=== PATIENT | female | born 1995 | race Caucasian/White ===

== ENCOUNTER 2016-07-29 18:14 | Outpatient (CLI) | payer OTHER ==
[~2016-07-29] VITALS: Ht 152.4 cm; Wt 84.1 kg
[2016-07-29] MEDS ORDERED: FERR325C PO (18:20)
[2016-07-29] MEDS ORDERED: PRENAT PO (18:20)
[2016-07-29 18:21] VITALS: Ht 152.4 cm; Wt 84.1 kg
[2016-07-29 18:34] VITALS: BP 127/63; PULSE 89; RESP 18
--- NOTE | 2016-07-29 19:37 | RADRPT ---
PROCEDURE: Limited obstetric ultrasound CLINICAL INDICATION: distress TECHNIQUE: Multiple transverse and longitudinal grayscale images of the pelvis were obtained bunch sabdominally and endovaginally.. COMPARISON: same day FINDINGS: The cervix is closed and measures 5.5 cm in length. RPTAT: AA IMPRESSION: Cervix length measures 5.5 cm. Physician Hope Date Time Electronically viewed and signed by Matthew Limon Physician on 07/29/2016 19:37 RA/
--- NOTE | 2016-07-29 19:38 | RADRPT ---
PROCEDURE: US OB biophysical profile. CLINICAL INDICATION: evaluation TECHNIQUE: Multiple sonographic images of the pelvis were obtained. The images were reviewed on a PACS workstation. COMPARISON: No prior studies are available for comparison. FINDINGS: There is a single viable intrauterine gestation. Cardiac activity is present with 144 beats per min [place]. There is a vertex presentation. The placenta is posterior. There is no evidence of placental abruption. There is a normal amount of amniotic fluid with an DONNA = 21.7 cm. Biophysical profile: movement 2/2 tone 2/2. breathing 2/2 DONNA 2/2 Total 12/06 RPTAT: AA . IMPRESSION: Normal biophysical profile. DONNA of 21.7 cm. Physician Hope Date Time Electronically viewed and signed by Physician Hope on 07/29/2016 19:38 /
--- NOTE | 2016-07-29 20:43 | PN ---
Date/Time of Note Date/Time of Note DATE: 07/29/16 TIME: 20:27 OB Subjective Subjective Subjective 21 yo P2 @ 31.4 wks, presented from clinic w polyhydraminos no complaints- good FM, no VB, no LOF, some irreg ctx OB Objective Objective Objective VS: 127/63, 89, 98 Abdomen- gravid, n/t SVE- deferred FHT- 130's; Cat I [place]- irreg ctx Abdomen: WNL Extremities: Normal Reflexes: Normal Membranes: Intact Accelerations: Accelerations Present Decelerations: No Decelerations Varibility: Moderate Contractions on Admission: 6-10 Minutes Apart Intensity: Mild OB Assessment/Plan Other Assessment: 21 yo P2 @ 31.4 wks w polyhydraminos - sono shows nml DONNA - cervical length 5.5cm - reassuring status Other plan: d/c home f/u in clinic SALEEM INIGUEZ MD Jul 29, 2016 20:43
--- NOTE | 2016-07-29 21:48 | TRIAGE ---
OB Triage Datetime Report Generated by CPN: 07/29/2016 21:47 Datetime: 07/29/2016 20:30 Labor Evaluation Frequency: IRREGULAR Monitor Mode: External Duration (sec)2399: 40-50 Quality: Mild Resting Tone [place]: Relaxed Heart Rate FHR Baseline Rate: 140 Monitor Mode: External US Variability: Moderate 6-25 bpm Accelerations: 15X15 Decelerations: None Category: Category I Datetime: 07/29/2016 20:23 Stage of : OB Triage Datetime: 07/29/2016 19:49 Stage of : OB Triage Datetime: 07/29/2016 19:30 Labor Evaluation Frequency: 2-6 Monitor Mode: External Duration (sec)2399: 40-70 Quality: Mild Resting Tone [place]: Relaxed Heart Rate FHR Baseline Rate: 130 Monitor Mode: External US Variability: Moderate 6-25 bpm Accelerations: 15X15 Decelerations: None Category: Category I Pain Assessment Pain Scale: 5 Pain Presence: Intermittent Pain Type: Cramping Pain Location: Abdomen Pain Relief Measures: Comfort Measures Datetime: 07/29/2016 18:38 Assessment Type: Admission Assessment Maternal Assessment Level of Consciousness: Fully Conscious DTR's/Clonus: DTRs 2+; No Clonus Headache: Denies Blurred Vision: No Respiratory Effort: Unlabored; Regular Rhythm; Equal Expansion Breath Sounds, Left: Clear and Equal Breath Sounds, Right: Clear and Equal Nausea/Vomiting: Denies RUQ Epigastric Pain: Denies Lower Extremities Edema: None Degree: None Upper Extremities Edema: None Degree: None Facial Edema: None Fall Risk Assessment History of Falling: (0) No Secondary Diagnosis: (0) No Ambulatory Aid: (0) Bedrest/Nurse Assist IV Therapy: (0) No Gait: (0) Normal/Bedrest/Immobile Mental Status: (0) Oriented to Own Ability Fall Score: 0 Fall Risk Score Definition: No Risk: No action required Labor Evaluation Frequency: OCCAS Monitor Mode: External Duration (sec)2399: 40-70 Quality: Mild Pattern: Normal: <= 5 Contractions in 10 Minutes Resting Tone [place]: Relaxed Heart Rate FHR Baseline Rate: 135 Monitor Mode: External US Variability: Moderate 6-25 bpm Accelerations: 15X15 Decelerations: None Category: Category I Datetime: 07/29/2016 18:36 Time of Arrival: 07/29/2016 18:14 EGA: 31.4 Arrived By: Wheelchair Arrived From: Emergency Dept Chief Complaint: POLYHYDRAMNIO Movement: Present Contractions: Irregular Rupture of Membranes: Denies Vaginal Bleeding: None Vaginal Discharge: Denies Recent Sexual Intercouse: Denies Abdominal Trauma: Not Applicable Patient Complaints: Other Initial Plan: NST, BPP WITH DONNA, CL
== END 2016-07-29 20:45 | disposition home or self-care (01) ==
LOC: L-D 18:14 → OBT 18:14
PROVIDERS: ATTEND Obstetrics & Gynecology
DX: O40.3XX0 Polyhydramnios, third trimester, not applicable or unspecified (principal); Z3A.31 31 weeks gestation of pregnancy
CPT/HCPCS: 76817; 76818; Z7500; G0463

== ENCOUNTER 2016-08-05 16:36 | Outpatient (CLI) | payer OTHER ==
[~2016-08-05] VITALS: Ht 152.4 cm; Wt 84.4 kg
[~2016-08-05 16:36] MED LIST: FERR325C PO; PRENAT PO
[2016-08-05 16:48] VITALS: BP 106/65; PULSE 97; RESP 18
[2016-08-05 17:38] LABS: ADD SCAN DIFF NO
[2016-08-05 17:44] LABS: BASOPHILS % 0.3 % (0.0-2.0); EOSINOPHILS # 0.1 10^3/ul (0.0-0.5); EOSINOPHILS % 0.4 % (0.0-7.0); HEMATOCRIT 32.3 % (37.0-47.0); HEMOGLOBIN 10.5 g/dl (12.0-16.0); LYMPHOCYTES # 1.9 10^3/ul (0.8-2.9); MEAN CORPUSCULAR HGB CONC 32.5 g/dl (32.0-37.0); MEAN PLATELET VOLUME 11.9 fl (7.4-10.4); MONOCYTE # 0.8 10^3/ul (0.3-0.9); MONOCYTES % 5.2 % (0.0-11.0); NEUTROPHIL # 12.3 10^3/ul (1.6-7.5); NEUTROPHILS % 80.1 % (39.0-77.0); PLATELET COUNT 256 10^3/UL (140-415); RED BLOOD COUNT 3.89 10^6/ul (4.20-5.40); RED CELL DISTRIBUTION WIDTH 13.1 % (11.5-14.5); WHITE BLOOD COUNT 15.4 10^3/ul (4.8-10.8)
[2016-08-05 17:46] LABS: ADD UMIC YES; URINE BILIRUBIN (Dip) NEGATIVE (NEGATIVE); URINE BLOOD (Dip) 1+ (NEGATIVE); URINE COLOR LT. YELLOW (YELLOW); URINE GLUCOSE (Dip) NEGATIVE (NEGATIVE); URINE KETONES (Dip) NEGATIVE (NEGATIVE); URINE LEUKOCYTE ESTERASE (Dip) TRACE (NEGATIVE); URINE NITRITE (Dip) NEGATIVE (NEGATIVE); URINE TOTAL PROTEIN (Dip) TRACE (NEGATIVE); URINE UROBILINOGEN (Dip) 0.2 E.U./dL (0.1-1.0)
[2016-08-05 17:50] LABS: INR 1.01; PROTIME 13.3 Sec (12.2-14.2)
[2016-08-05 17:51] LABS: PARTIAL THROMBOPLASTIN TIME 24.1 Sec (25.0-35.0)
[2016-08-05 17:56] LABS: ALBUMIN 3.7 g/dl (3.3-4.9); ALBUMIN/GLOBULIN RATIO 0.97; BILIRUBIN,INDIRECT 0.3 mg/dl (0-1.1); BILIRUBIN,TOTAL 0.3 mg/dl (0.2-1.3); CALCIUM 8.1 mg/dl (8.4-10.2); CREATININE 0.49 mg/dl (0.44-1.00); POTASSIUM 3.9 mmol/L (3.5-5.1); TOTAL PROTEIN 7.5 g/dl (6.1-8.1); URIC ACID 3.9 mg/dl (3.1-7.9)
--- NOTE | 2016-08-05 17:56 | RADRPT ---
PROCEDURE: US OB biophysical profile. CLINICAL INDICATION: decreased movements, hypertension TECHNIQUE: Multiple sonographic images of the pelvis were obtained. The images were reviewed on a PACS workstation. COMPARISON: 07/29/16 FINDINGS: There is a single viable intrauterine gestation. Cardiac activity is present with 128 beats per min [place]. There is a vertex presentation. The placenta is posterior. There is no evidence of placental abruption. There is a normal amount of amniotic fluid with an DONNA = 19.6 cm. Biophysical profile: movement 2/2 tone 2/2. breathing 2/2 DONNA 2/2 Total 12/06 RPTAT: AA . IMPRESSION: Normal biophysical profile. . .Elan Roper MD, MD Date Time Electronically viewed and signed by .Elan Roper MD, MD on 08/05/2016 17:56 .S/
[2016-08-05 18:04] LABS: BACTERIA,URINE FEW
--- NOTE | 2016-08-05 18:09 | RADRPT ---
PROCEDURE: US OB. CLINICAL INDICATION: Size and dates , hypertension TECHNIQUE: Multiple sonographic images of the pelvis and gravid uterus were obtained. The images were reviewed on a PACS workstation. COMPARISON: No prior studies are available for comparison. FINDINGS: There is a single viable intrauterine gestation. Cardiac activity is present with 126 beats per min [place]. There is a vertex presentation. The placenta is posterior. There is no evidence for an abruption or placenta previa. There is a normal amount of amniotic fluid with an DONNA = 19.6 cm. Measurements were made in order to determine age. The results are as follows: BPD =8.5 cm HC =29.8 cm AC =27.1 cm FL =6.3 cm Estimated gestational age of approximately 32 weeks and 5 days based on ultrasound measurements. Clinical age: 32 weeks and 4 days. The estimated date of delivery is 09/25/16, based on ultrasound measurements. The EFW = 1886 g, 24%, based on LMP age. RPTAT: AA IMPRESSION: Single viable intrauterine gestation of approximately 32 weeks and 5 days based on ultrasound measu rements. .Elan Roper MD, Date Time Electronically viewed and signed by .Elan Roper MD, on 08/05/2016 18:08 .S/
--- NOTE | 2016-08-05 19:38 | TRIAGE ---
OB Triage Datetime Report Generated by CPN: 08/05/2016 19:37 Datetime: 08/05/2016 19:15 Stage of : OB Triage Datetime: 08/05/2016 18:00 Labor Evaluation Frequency: X3 Monitor Mode: External Duration (sec)2399: 50-60 Quality: Mild Pattern: Normal: <= 5 Contractions in 10 Minutes Resting Tone [place]: Relaxed Heart Rate FHR Baseline Rate: 135 Monitor Mode: External US FHR Baseline Changes: No Baseline Change Variability: Moderate 6-25 bpm Accelerations: 15X15 Decelerations: None Category: Category I Pain Assessment Pain Scale: 6 Pain Presence: Intermittent Pain Type: Cramping; Ache Pain Location: Abdomen; Head Pain Relief Measures: Comfort Measures Datetime: 08/05/2016 17:00 Labor Evaluation Frequency: X1+IRRITABILITY Monitor Mode: External Duration (sec)2399: 20-50 Quality: Mild Pattern: Normal: <= 5 Contractions in 10 Minutes Resting Tone [place]: Relaxed Heart Rate FHR Baseline Rate: 135 Monitor Mode: External US FHR Baseline Changes: No Baseline Change Variability: Moderate 6-25 bpm Accelerations: 15X15 Decelerations: None Category: Category I Pain Assessment Pain Scale: 7 Pain Presence: Intermittent Pain Type: Cramping; Ache Pain Location: Abdomen; Head Pain Relief Measures: Comfort Measures Datetime: 08/05/2016 16:50 Assessment Type: Triage Maternal Assessment Level of Consciousness: Fully Conscious DTR's/Clonus: DTRs 2+; No Clonus Headache: Generalized Blurred Vision: No Respiratory Effort: Unlabored; Regular Rhythm Breath Sounds, Left: Clear and Equal Breath Sounds, Right: Clear and Equal Nausea/Vomiting: Denies RUQ Epigastric Pain: Denies Lower Extremities Edema: Bilateral Lower Extremities Degree: 1+ Upper Extremities Edema: None Degree: None Facial Edema: None Fall Risk Assessment History of Falling: (0) No Secondary Diagnosis: (0) No Ambulatory Aid: (0) Bedrest/Nurse Assist IV Therapy: (0) No Gait: (0) Normal/Bedrest/Immobile Mental Status: (0) Oriented to Own Ability Fall Score: 0 Fall Risk Score Definition: No Risk: No action required Datetime: 08/05/2016 16:49 Time of Arrival: 08/05/2016 16:35 EGA: 32.4 Arrived By: Ambulatory Arrived From: Other Unit in Hospital Chief Complaint: PT PRESENTS TO TRIAGE FROM T FOR COMPLAINTS OF HEADACHE AND ABDOMINAL PAIN SINC E YESTERDAY Movement: Present Contractions: Denies/Absent Rupture of Membranes: Denies Vaginal Bleeding: None Vaginal Discharge: Denies Recent Sexual Intercouse: Denies Abdominal Trauma: Not Applicable Patient Complaints: Headache; Epigastric Pain Time Provider Notified: 08/05/2016 16:37 Provider Notified: OPHELIA Initial Plan: EFM/PIH WORKUP/BPP/EFW Datetime: 08/05/2016 16:48 Pain Assessment Pain Scale: 7 Pain Presence: Constant Pain Type: Ache Pain Location: Abdomen; Head Pain Relief Measures: Comfort Measures Datetime: 07/29/2016 18:38 Fall Score: 0 Fall Risk Score Definition: No Risk: No action required Datetime: 07/29/2016 18:36 EGA: 31.4
== END 2016-08-05 19:36 | disposition home or self-care (01) ==
LOC: OBT 16:36 → L-D 16:37 → OBT 19:36
PROVIDERS: ATTEND Obstetrics & Gynecology
DX: O26.893 Other specified pregnancy related conditions, third trimester (principal); Z3A.32 32 weeks gestation of pregnancy
CPT/HCPCS: 36415; 76815; 76818; 80053; 81001; 84560; 85025; 85610; 85730; Z7500; Z7610; 81003; G0463

== ENCOUNTER 2016-08-13 16:02 | Outpatient (CLI) | payer OTHER ==
[~2016-08-13] VITALS: Ht 152.4 cm; Wt 85.6 kg
--- NOTE | 2016-08-13 16:04 | NSTRPT ---
NST Information Datetime Report Generated by CPN: 08/13/2016 16:03 Datetime: 08/05/2016 14:35 NST Information EGA: 32.4 Test Number: 1 Time on Monitor: 08/05/2016 15:18 Time off Monitor: 08/05/2016 15:44 NST Duration (Min): 26 Reason for NST: Polyhydramnios Test and Monitor Explained: Monitor Explained; Test Explained; Verbalized Understanding Pulse: 113 Resp: 18 SBP: 99 DBP: 58 Test Evaluation NST Interventions: None Patient States Movement: Present Contraction Frequency: NONE FHR Baseline : 135 Variability: Moderate 6-25bpm Accelerations: 15X15 Decelerations: None FHR Category: Category I NST Results: Reactive Comments: To Perinatology Pt to perinatology, DONNA 24.0cm, cephalic EFW 2086gms (50%), AC 69% Pt c/o headache 7/10 pain level and left upper quadrant pain 6/10, hx of preeclampsia with prior delivery. Dr. Stinson spoke with patient and recommends pt go to OB Triage for R/O PIH. Dr. Melvin shelley led and informed of Dr. Stinson's recommendation. Dr. Melvin agrees with plan. Plan of care discussed with patient. Pt verbalizes understanding. 1605-Pt to OB triage now. Follow-up NST appointment given, pt verbalizes understanding and denie s questions. Electronically Signed By E-Signature: with User ID: [id number]
[2016-08-13 16:13] VITALS: Ht 152.4 cm; Wt 85.6 kg
--- NOTE | 2016-08-13 16:58 | RADRPT ---
PROCEDURE: US OB biophysical profile. CLINICAL INDICATION: decreased movements TECHNIQUE: Multiple sonographic images of the pelvis were obtained. The images were reviewed on a PACS workstation. COMPARISON: No prior studies are available for comparison. FINDINGS: There is a single viable intrauterine gestation. Cardiac activity is present with 135 beats per min [place]. There is a transverse maternal right presentation. The placenta is posterior. There is no evidence of placental abruption. There is an increased amount of amniotic fluid with an DONNA = 24.5 cm. Biophysical profile: movement 2/2 tone 2/2. breathing 2/2 DONNA 2/2 Total 12/06 RPTAT: AA . IMPRESSION: Normal biophysical profile. Polyhydramnios. . .Elan Roper MD, Date Time Electronically viewed and signed by .Elan Roper MD, MD on 08/13/2016 16:58 .S/
[2016-08-13] MEDS ORDERED: LACTATED RINGER'S 1,000 ML IV ONE (17:00)
[2016-08-13] MEDS ORDERED: PROCHLORPERAZINE 10 MG INJ IV ONE (17:00)
[2016-08-13 17:45] LABS: ADD UMIC YES; URINE BILIRUBIN (Dip) NEGATIVE (NEGATIVE); URINE BLOOD (Dip) NEGATIVE (NEGATIVE); URINE COLOR YELLOW (YELLOW); URINE GLUCOSE (Dip) NEGATIVE (NEGATIVE); URINE KETONES (Dip) NEGATIVE (NEGATIVE); URINE LEUKOCYTE ESTERASE (Dip) 2+ (NEGATIVE); URINE NITRITE (Dip) NEGATIVE (NEGATIVE); URINE TOTAL PROTEIN (Dip) NEGATIVE (NEGATIVE); URINE UROBILINOGEN (Dip) 0.2 E.U./dL (0.1-1.0)
[2016-08-13 18:19] LABS: BACTERIA,URINE MODERATE; SQUAMOUS EPITHELIAL CELL,UR MANY; URINE RBCS NONE SEEN /HPF (0)
--- NOTE | 2016-08-13 18:19 | RADRPT ---
PROCEDURE: Limited obstetric ultrasound CLINICAL INDICATION: Pain TECHNIQUE: Multiple transverse and longitudinal grayscale images of the pelvis were obtained tra nsvaginally.. COMPARISON: same day FINDINGS: The cervix is closed with a length of 5.2 cm. RPTAT: AA IMPRESSION: Cervix length measures 5.2 cm. .Elan Roper MD, MD Date Time Electronically viewed and signed by .Elan Roper MD, on 08/13/2016 18:19 .S/
--- NOTE | 2016-08-13 18:49 | HP ---
Date/Time of Note Date/Time of Note DATE: 08/13/16 TIME: 18:48 OB - History Hx of Present Free Text/Dictation Pt is a 21yo at 33+5 presenting from clinic for evaluation of CLARK, nausea and decreased FM this AM. Pt states her headache has been intermittent x2 weeks. States she took Tylenol the last time she was in triage however it did not improve the pain much. Also c/o nausea although able to eat full breakfast this AM and fruit for lunch without vomiting. Reports normal FM, denies LOF or VB although does report feeling some UCs. PROCEDURE: US OB biophysical profile. CLINICAL INDICATION: decreased movements TECHNIQUE: Multiple sonographic images of the pelvis were obtained. The images were reviewed on a PACS workstation. COMPARISON: No prior studies are available for comparison. FINDINGS: There is a single viable intrauterine gestation. Cardiac activity is present with 135 beats per minute. There is a transverse maternal right presentation. The placenta is posterior. There is no evidence of placental abruption. There is an increased amount of amniotic fluid with an DONNA = 24.5 cm. Biophysical profile: movement 2/2 tone 2/2. breathing 2/2 DONNA 2/2 Total 12/06 RPTAT: AA . IMPRESSION: Normal biophysical profile. Polyhydramnios. PROCEDURE: Limited obstetric ultrasound CLINICAL INDICATION: Pain TECHNIQUE: Multiple transverse and longitudinal grayscale images of the pelvis were obtained transvaginally.. COMPARISON: same day FINDINGS: The cervix is closed with a length of 5.2 cm. RPTAT: AA IMPRESSION: Cervix length measures 5.2 cm. Estimated Due Date: September 26, 2016 : 3 Para: 2 Care: Good Care Obstetrical Complications: None (during this ), Pre-eclampsia (in prior ) OB Admission Exam Vital Signs Vital Signs T 96.0 BP 104/61, 113/69 P 89, 83 R 18 Physical Exam HEENT: WNL Heart: Rhythm Normal Lungs: Clear Abdomen: WNL (mild TTP along spine) Extremities: Normal Heart Rate: 150's Accelerations: Accelerations Present Decelerations: Variable Decelerations (several nonrepetitive variable with kevin to 120s-130s) Varibility: Moderate Contractions on Admission: 6-10 Minutes Apart (q7 min initially, now q9 s/p IVF bolus) Intensity: Mild OB Assessment/Plan Other Assessment: Headache and Nausea, resolved s/p IV Compazine Contractions, without evidence of PTL Polyhydramnios Category 2 FHT- Variable decels Other plan: Pt appropriate for d/c home given symptomatically feels well now. Likely UCs 2/ 2 polyhydramnios given long CL not indicative of labor thus collected FFN not sent. Given Category 2 FHT, recommended prolonged monitoring overnight. Pt declined in favor of going home. Pt was asked to sign an AMA form prior to leaving the hospital and after reviewing risks of leaving prior to confirming wellbeing. Risks discussed include but are not limited to , distress or compromise and neurological injury in fetus. Pt was able to verbalize risks discussed. Pt was counseled and form was signed. Questions were answered to the patient's satisfaction. She reports her next OB appt is next week with Dr. Melvin and anticipates returning to OB Triage in 2d for NST/DONNA. Return precautions reviewed in detail, including PTL, PPROM and FKC. Would recommend continued surveillance in the setting of polyhydramnios Questions answered to patient's satisfaction MAURICIO ALCANTAR MD Aug 13, 2016 18:49
== END 2016-08-13 19:25 | disposition home or self-care (01) ==
LOC: OBT 16:02 → L-D 16:02 → OBT 19:25
PROVIDERS: ATTEND Obstetrics & Gynecology
DX: O36.8130 Decreased fetal movements, third trimester, not applicable or unspecified (principal); O26.893 Other specified pregnancy related conditions, third trimester; R10.9 Unspecified abdominal pain; Z3A.33 33 weeks gestation of pregnancy
CPT/HCPCS: 36415; 76817; 76818; 81001; J0780; J7120; Z7500; 81003; G0463

== ENCOUNTER 2016-08-23 11:19 | Outpatient (CLI) | payer OTHER ==
[~2016-08-23] VITALS: Ht 152.4 cm; Wt 87.5 kg
[2016-08-23 11:48] VITALS: BP 112/59; PULSE 96; RESP 20
[2016-08-23] MEDS ORDERED: ACETAMINOPHEN 325 MG TAB PO PRN (12:30)
--- NOTE | 2016-08-23 13:25 | RADRPT ---
PROCEDURE: OB ultrasound for biophysical profile CLINICAL INDICATION: induced hypertension. TECHNIQUE: Multiple sonographic images of the pelvis were obtained. Transabdominal view of the gr avid uterus are available for review. The images were reviewed on a PACS workstation. COMPARISON: OB ultrasound 08/13/2016 FINDINGS: breathing movement = 2/2 tone = 2/2 motion = 2/2 DONNA = 2/2 DONNA = 24.6 cm Single live intrauterine with cardiac activity. heart rate equals 134 beats p er minute. Presentation is cephalic. The placenta is posterior. IMPRESSION: 1. Single viable intrauterine gestation. 2. Biophysical profile = 8/8. 3. DONNA = 24.6 cm, consistent with polyhydramnios. Follow-up is recommended. RPTAT: KK .Miah Mcneil MD, Date Time Electronically viewed and signed by .Miah Mcneil MD, MD on 08/23/2016 13:25 .B/
[2016-08-23 13:31] LABS: ADD SCAN DIFF NO
[2016-08-23 13:33] LABS: BASOPHILS % 0.3 % (0.0-2.0); EOSINOPHILS % 0.3 % (0.0-7.0); HEMATOCRIT 31.2 % (37.0-47.0); HEMOGLOBIN 9.9 g/dl (12.0-16.0); LYMPHOCYTES # 1.8 10^3/ul (0.8-2.9); LYMPHOCYTES % 14.7 % (15.0-51.0); MEAN CORPUSCULAR HEMOGLOBIN 25.7 pg (29.0-33.0); MEAN CORPUSCULAR HGB CONC 31.7 g/dl (32.0-37.0); MEAN PLATELET VOLUME 11.7 fl (7.4-10.4); MONOCYTE # 0.6 10^3/ul (0.3-0.9); MONOCYTES % 4.8 % (0.0-11.0); NEUTROPHIL # 9.5 10^3/ul (1.6-7.5); NEUTROPHILS % 78.3 % (39.0-77.0); PLATELET COUNT 250 10^3/UL (140-415); RED BLOOD COUNT 3.85 10^6/ul (4.20-5.40); RED CELL DISTRIBUTION WIDTH 13.9 % (11.5-14.5); WHITE BLOOD COUNT 12.2 10^3/ul (4.8-10.8)
[2016-08-23 13:40] LABS: ADD UMIC YES; UR BILIRUBIN (Dip) NEGATIVE (NEGATIVE); UR BLOOD (Dip) TRACE (NEGATIVE); UR CLARITY CLEAR (CLEAR); UR COLOR LT. YELLOW (YELLOW); UR GLUCOSE (Dip) NEGATIVE (NEGATIVE); UR KETONES (Dip) NEGATIVE (NEGATIVE); UR LEUKOCYTE ESTERASE (Dip) TRACE (NEGATIVE); UR NITRITE (Dip) NEGATIVE (NEGATIVE); UR TOTAL PROTEIN (Dip) NEGATIVE (NEGATIVE); UR UROBILINOGEN (Dip) 0.2 E.U./dL (0.1-1.0)
[2016-08-23 13:43] LABS: INR 0.97; PROTIME 12.9 Sec (12.2-14.2)
[2016-08-23 13:44] LABS: PARTIAL THROMBOPLASTIN TIME 25.8 Sec (25.0-35.0)
[2016-08-23 13:47] LABS: ALBUMIN 3.5 g/dl (3.3-4.9); ALBUMIN/GLOBULIN RATIO 0.97; BILIRUBIN,INDIRECT 0.1 mg/dl (0-1.1); BILIRUBIN,TOTAL 0.1 mg/dl (0.2-1.3); CALCIUM 8.5 mg/dl (8.4-10.2); CREATININE 0.42 mg/dl (0.44-1.00); TOTAL PROTEIN 7.1 g/dl (6.1-8.1); URIC ACID 3.5 mg/dl (3.1-7.9)
[2016-08-23 14:02] LABS: UR BACTERIA FEW; URINE RBCS 0-2 /HPF (0)
[2016-08-23] MEDS ORDERED: PRENAT PO ×3 (14:20→14:28)
--- NOTE | 2016-08-23 14:36 | TRIAGE ---
OB Triage Datetime Report Generated by CPN: 08/23/2016 14:35 Datetime: 08/23/2016 14:20 Stage of : Antepartum Datetime: 08/23/2016 13:50 Stage of : OB Triage Datetime: 08/23/2016 13:40 Stage of : OB Triage Datetime: 08/23/2016 12:30 Stage of : OB Triage Datetime: 08/23/2016 12:00 Stage of : OB Triage Labor Evaluation Frequency: NONE Monitor Mode: External Resting Tone [place]: Relaxed Heart Rate FHR Baseline Rate: 140 FHR Baseline Changes: No Baseline Change Variability: Moderate 6-25 bpm Accelerations: 15X15 Decelerations: None Category: Category I Pain Assessment Pain Scale: 8 Pain Presence: Constant Pain Type: Pressure Pain Location: Head Pain Goal: 3 Pain Relief Measures: Comfort Measures Datetime: 08/23/2016 11:59 Assessment Type: Triage Maternal Assessment Level of Consciousness: Fully Conscious DTR's/Clonus: DTRs 2+; No Clonus Headache: Frontal Blurred Vision: No Respiratory Effort: Unlabored; Regular Rhythm; Equal Expansion Breath Sounds, Left: Clear and Equal Breath Sounds, Right: Clear and Equal Nausea/Vomiting: Denies RUQ Epigastric Pain: Denies Lower Extremities Edema: None Degree: None Upper Extremities Edema: None Degree: None Facial Edema: None Fall Risk Assessment History of Falling: (0) No Secondary Diagnosis: (0) No Ambulatory Aid: (0) Bedrest/Nurse Assist IV Therapy: (0) No Gait: (0) Normal/Bedrest/Immobile Mental Status: (0) Oriented to Own Ability Fall Score: 0 Fall Risk Score Definition: No Risk: No action required Datetime: 08/13/2016 19:06 Comments: REPORT GIVEN TO BEVERLY RN Datetime: 08/13/2016 18:43 Labor Evaluation Frequency: 7-9 Monitor Mode: External Duration (sec)2399: 65-100 Quality: Mild Pattern: Normal: <= 5 Contractions in 10 Minutes Resting Tone [place]: Relaxed Heart Rate FHR Baseline Rate: 160 Monitor Mode: External US FHR Baseline Changes: No Baseline Change Variability: Moderate 6-25 bpm Accelerations: 15X15 Decelerations: Variable Category: Category I Pain Assessment Pain Scale: 2 Pain Presence: Intermittent Pain Type: Ache Pain Location: Back; Head Pain Relief Measures: Comfort Measures Datetime: 08/13/2016 18:29 Stage of : OB Triage Datetime: 08/13/2016 17:52 Labor Evaluation Frequency: 1-7 Monitor Mode: External Duration (sec)2399: 50-100 Quality: Mild Pattern: Normal: <= 5 Contractions in 10 Minutes Resting Tone [place]: Relaxed Heart Rate FHR Baseline Rate: 150 Monitor Mode: External US FHR Baseline Changes: No Baseline Change Variability: Moderate 6-25 bpm Accelerations: Prolonged Decelerations: None Category: Category I Pain Presence: None/Denies Pain Assessment Comments: Pt informs RN she has no more headache. Datetime: 08/13/2016 17:22 Pain Assessment Pain Scale: 8 Pain Presence: Constant Pain Type: Ache Pain Location: Head Pain Goal: 2 Pain Relief Measures: Comfort Measures Pain Assessment Comments: Pt c/o of constant headache Datetime: 08/13/2016 16:52 Labor Evaluation Frequency: 2-8 Monitor Mode: External Duration (sec)2399: 40-100 Quality: Mild Pattern: Normal: <= 5 Contractions in 10 Minutes Resting Tone [place]: Relaxed Heart Rate FHR Baseline Rate: 150 Monitor Mode: External US FHR Baseline Changes: No Baseline Change Variability: Moderate 6-25 bpm Accelerations: 15X15 Decelerations: None Category: Category I Pain Assessment Pain Scale: 3 Pain Presence: Intermittent Pain Type: Ache Pain Location: Back Pain Goal: 0 Pain Relief Measures: Comfort Measures Datetime: 08/13/2016 16:21 Assessment Type: Triage Maternal Assessment Level of Consciousness: Fully Conscious DTR's/Clonus: DTRs 2+; No Clonus Headache: Denies Blurred Vision: No Respiratory Effort: Unlabored; Regular Rhythm; Equal Expansion Breath Sounds, Left: Clear and Equal Breath Sounds, Right: Clear and Equal Nausea/Vomiting: Denies RUQ Epigastric Pain: Denies Lower Extremities Edema: Bilateral Lower Extremities Degree: Trace Upper Extremities Edema: Bilateral Upper Extremities Degree: Trace Facial Edema: None Fall Risk Assessment History of Falling: (0) No Secondary Diagnosis: (0) No Ambulatory Aid: (0) Bedrest/Nurse Assist IV Therapy: (0) No Gait: (0) Normal/Bedrest/Immobile Mental Status: (0) Oriented to Own Ability Fall Score: 0 Fall Risk Score Definition: No Risk: No action required Datetime: 08/13/2016 16:14 Time of Arrival: 08/23/2016 11:21 EGA: 35.1 Arrived By: Ambulatory Arrived From: Dr. Mcghee Chief Complaint: Headache, Movement: Present Contractions: Denies/Absent Rupture of Membranes: Denies Vaginal Bleeding: None Vaginal Discharge: Denies Recent Sexual Intercouse: Denies Abdominal Trauma: Not Applicable Patient Complaints: Headache Time Provider Notified: 08/23/2016 12:30 Provider Notified: OPHELIA Initial Plan: NST, BPP, PIH LAB WRKER TYLENOL PO. Datetime: 08/13/2016 16:12 Stage of : OB Triage Datetime: 08/05/2016 19:30 Stage of : OB Triage Pain Assessment Pain Scale: 2 Pain Presence: Constant Pain Type: Stabbing; Pressure Datetime: 08/05/2016 19:15 Maternal Assessment Level of Consciousness: Fully Conscious Headache: Denies Nausea/Vomiting: Denies RUQ Epigastric Pain: Denies Comments: Pt states baby active Pain Assessment Pain Scale: 2 Pain Presence: Constant Pain Type: Pressure; Ache Pain Location: left side Pain Goal: 0 Pain Assessment Comments: Pt states feeling better with abdominal binder in place Datetime: 08/05/2016 16:50 Fall Score: 0 Fall Risk Score Definition: No Risk: No action required Datetime: 08/05/2016 16:49 EGA: 32.4 Datetime: 07/29/2016 18:38 Fall Score: 0 Fall Risk Score Definition: No Risk: No action required Datetime: 07/29/2016 18:36 EGA: 31.4
--- NOTE | 2016-11-17 18:21 | PN ---
Triage Information Date/Time 08/23/16 Weeks of Gestation 35 : 3 Para: 2 Assessment/Plan SATURNINO ANSARI MD Nov 17, 2016 18:21
== END 2016-08-23 14:40 | disposition home or self-care (01) ==
LOC: OBT 11:19 → L-D 11:20 → OBT 14:40
PROVIDERS: ATTEND Obstetrics & Gynecology
DX: O26.893 Other specified pregnancy related conditions, third trimester (principal); Z3A.35 35 weeks gestation of pregnancy; R51 Headache
CPT/HCPCS: 76818; 80053; 81001; 84560; 85025; 85384; 85610; 85730; Z7500; Z7610; 81003; G0463

== ENCOUNTER 2016-09-19 06:44 | Inpatient (IN) | payer OTHER ==
[2016-09-19 07:14] LABS: ADD SCAN DIFF NO
[2016-09-19] MEDS: LACTATED RINGER'S 1,000 ML IV SCH ×2 (07:15→23:06)
[2016-09-19 07:17] LABS: BASOPHILS % 0.3 % (0.0-2.0); EOSINOPHILS # 0.1 10^3/ul (0.0-0.5); EOSINOPHILS % 0.8 % (0.0-7.0); HEMATOCRIT 31.1 % (37.0-47.0); HEMOGLOBIN 9.8 g/dl (12.0-16.0); LYMPHOCYTES % 20.9 % (15.0-51.0); MEAN CORPUSCULAR HEMOGLOBIN 24.4 pg (29.0-33.0); MEAN CORPUSCULAR HGB CONC 31.5 g/dl (32.0-37.0); MEAN CORPUSCULAR VOLUME 77.4 fl (82.0-101.0); MEAN PLATELET VOLUME 11.9 fl (7.4-10.4); MONOCYTE # 0.6 10^3/ul (0.3-0.9); NEUTROPHIL # 6.8 10^3/ul (1.6-7.5); NEUTROPHILS % 70.4 % (39.0-77.0); PLATELET COUNT 245 10^3/UL (140-415); RED BLOOD COUNT 4.02 10^6/ul (4.20-5.40); RED CELL DISTRIBUTION WIDTH 15.1 % (11.5-14.5); WHITE BLOOD COUNT 9.6 10^3/ul (4.8-10.8)
[2016-09-19] MEDS ORDERED: CARBOPROST 250 MCG INJ IM PRN ×2 (07:30→12:30)
[2016-09-19] MEDS ORDERED: FAMOTIDINE 20 MG INJ IV ONE (07:30)
[2016-09-19] MEDS ORDERED: MISOPROSTOL 200 MCG TAB PR PRN ×2 (07:30→12:30)
[2016-09-19] MEDS ORDERED: OXYTOCIN 30 UNITS/LR 500 ML IV PRN ×2 (07:30→12:30)
[2016-09-19] MEDS ORDERED: CEFAZOLIN 2 GM/50 ML (PMX) 50 ML IV SCH (07:30)
[2016-09-19] MEDS ORDERED: CITRIC ACID/NA CITRATE 30 ML CUP PO ONE (07:30)
[2016-09-19] MEDS ORDERED: METHYLERGONOVINE 0.2 MG INJ IM PRN ×2 (07:30→12:30)
[2016-09-19] MEDS ORDERED: morphine SULFATE/PF (10 MG/10 ML) INJ ONE (07:31)
[2016-09-19] MEDS ORDERED: FENTAnyl 50 MCG/ML VIAL ONE (07:31)
[2016-09-19] MEDS ORDERED: CITRIC ACID/SODIUM CITRATE 15 ML CUP ONE (07:37)
[2016-09-19 07:41] LABS: INR 0.93; PROTIME 12.5 Sec (12.2-14.2)
[2016-09-19] MEDS ORDERED: CITRIC ACID/SODIUM CITRATE 15 ML CUP PO ONE ×2 (08:00)
[2016-09-19] MEDS ORDERED: ONDANSETRON 4 MG INJ ONE (08:54)
--- NOTE | 2016-09-19 09:11 | HP ---
Date/Time of Note Date/Time of Note DATE: 09/19/16 TIME: 08:59 OB - History Hx of Present Free Text/Dictation 21 years old 3 para 2 with EDC September 26, 2016 admitted at 39 weeks gestation with history of previous section being prepared to undergo repeat this patient has been under the care of the [facility] her has not been complicated with gestational diabetes -induced hypertension or any other serious surgical or medical conditions . 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 ;menarche at age 12 history of total of 3 including the present one normal vaginal delivery 1 section Allergies Denies allergy to any known medication Social habit Denies a smoking or drinking Review of system within normal Physical examination 5 feet Temperature 98.4 pulse 100 respiration 18 blood pressure 119/80 Head ears nose and throat negative Neck supple no thyromegaly Lungs clear to P&A Heart normal sinus rhythm no murmur Abdomen fundal height 37 cm from symphysis pubis with a heart rate in 130s category 1 Pelvic examination deferred Extremities no edema no varicosities Impression intrauterine at 39 weeks history of 1 previous section, patient has been counseled regarding the complication of the surgery including but not limited to bowel and bladder injury infection wound hematoma hemorrhage and she is willing to go ahead with the procedure Chief Complaint: 39 weeks previous Estimated Due Date: September 26, 2016 : 3 Para: 2 Care: Good Care Ultrasounds: Normal mid trimester US Obstetrical Complications: None Medical Complications: None Past Family/Social History * Past Medical, Surgical, Family and Obstetric Histories reviewed from chart. Rubella: immune RPR/VDRL: Negative GBS Status: Negative HBsAG: Negative OB Admission Exam Physical Exam HEENT: WNL Heart: Rhythm Normal Lungs: Clear, Equal Abdomen: WNL Extremities: Normal Reflexes: Normal Cervical Dilatation: Fingertip Effacement: 0% Station: -2 Membranes: Intact Heart Rate: 130's Accelerations: Accelerations Present Decelerations: No Decelerations Contractions on Admission: >10 Minutes Apart Intensity: Mild Last 72 hours Lab Results CBC & BMP 09/19/16 07:04 OB Assessment/Plan Reason for admission: section, other (Repeat ) SATURNINO JACINTO MD September 19, 2016 09:09
[2016-09-19] MEDS ORDERED: PHENYLephrine (100 MCG/ML) 5ML SYG ONE (09:14)
[2016-09-19] MEDS ORDERED: DIPHENHYDRAMINE 50 MG INJ IV PRN (09:30)
[2016-09-19] MEDS ORDERED: ONDANSETRON 4 MG INJ IV PRN ×2 (09:30)
[2016-09-19] MEDS ORDERED: KETOROLAC 30 MG INJ IV PRN ×2 (09:30)
[2016-09-19] MEDS ORDERED: PROCHLORPERAZINE 10 MG INJ IV PRN ×2 (09:30)
[2016-09-19] MEDS ORDERED: NALOXONE (0.4 MG/ML) INJ IV PRN (09:30)
[2016-09-19] MEDS ORDERED: HYDROmorphONE (0.2 MG/ML) 10ML SYG IV PRN (09:30)
[2016-09-19] MEDS ORDERED: ZOLPIDEM 5 MG TAB PO PRN (09:30)
[2016-09-19] MEDS ORDERED: HYDROmorphONE 1 MG/ML SYG IV PRN ×2 (09:30)
[2016-09-19] MEDS ORDERED: OXYTOCIN 30 UNITS/LR 500 ML IV ONE (09:36)
--- NOTE | 2016-09-19 10:13 | OPR ---
DATE OF OPERATION: 09/19/2016 PREOPERATIVE DIAGNOSES: 1. Intrauterine at 39 weeks' gestation. 2. History of previous section. POSTOPERATIVE DIAGNOSES: 1. Intrauterine at 39 weeks' gestation. 2. History of previous section. OPERATION PERFORMED: Repeat transverse low cervical section. SURGEON: Saturnino Melvin MD LIFESTYLE BLOCK FARMER: Fernanda Redmond MD ANESTHESIA: Spinal. ANESTHESIOLOGIST: Dr. Mancuso FINDINGS: Live baby girl with 's of 8 and 8. Baby weighed 8 pounds 2 ounces. DETAILS OF THE PROCEDURE: Under satisfactory spinal anesthesia, the patient was prepped and draped and placed in the supine position, tilted to the left. Pfannenstiel incision was made. The incisio n was carried through the subcutaneous tissue. Bleeders were brought under control with electrocaut liza. Fascia was incised to the length of the incision. Rectus muscle was divided in the midline. Peritoneum exposed, entered through a transverse incision. Exploration of the abdomen, gravid uteru s at term, normal-appearing tubes and ovaries, extremely thinned out lower segment of the uterus. B ladder flap was developed. Transverse incision was made in the lower segment of the uterus. Amniot ic sac ruptured. Clear amniotic fluid noted. A live baby girl was delivered from an unengaged vert ex. Nasal oropharyngeal suction was performed. Baby was handed to the team for immediate attention. Patient received 20 units of Pitocin. The placenta delivered manually intact. Uterine cavity was cleaned with wet sponge and drainage was established. Uterus was closed in 2 layers usin g Monocryl #1 in continuous fashion. Peritoneal cavity was irrigated with warm saline. Sponge, nee dle and instrument were reported to be correct. Abdominal peritoneum was closed with 2-0 chromic ca tgut continuously. Rectus muscle was approximated with 3 interrupted 2-0 chromic catgut. Fascia wa s closed with #1 PDS in continuous fashion. Subcutaneous tissue was approximated and repaired with interrupted 2-0 chromic catgut. Skin was closed with ml. Estimated blood loss was 600 mL. Ur ine bag contained 200 mL of clear urine. Patient tolerated the procedure well, was transferred to [facility] recovery room in good condition. Dictated By: SATURNINO GUERRERO/DWAINE Conf#: [id number] DID#: [id number]
[2016-09-19] MEDS: OXYTOCIN 30 UNITS/LR 500 ML IV SCH ×4 (11:07→20:43)
[2016-09-19 12:15] VITALS: BP 108/60; PULSE 88; RESP 18
[2016-09-19] MEDS ORDERED: LANOLIN 7 GM TUBE TOP PRN (12:30)
[2016-09-19] MEDS: MULTIVIT/MIN/FOLATE/IRON/PREN TAB PO SCH (12:30)
[2016-09-19] MEDS ORDERED: CEFAZOLIN 1 GM/50 ML (PMX) 50 ML IVPB SCH (12:30)
[2016-09-19] MEDS ORDERED: OXYCODONE/ACETAMINOPHEN (5/325) TAB PO PRN ×2 (12:30)
[2016-09-19] MEDS ORDERED: ACETAMINOPHEN/CODEINE #3 TAB PO PRN ×2 (12:30)
[2016-09-19 16:00] VITALS: BP 99/51; PULSE 86; RESP 18
[2016-09-19 19:25] VITALS: BP 98/51; PULSE 92; RESP 18
[2016-09-19] MEDS: DIPHENHYDRAMINE 50 MG INJ IV PRN (19:48)
[2016-09-19] MEDS: SENNA/DOCUSATE NA (8.6MG/50MG) TAB PO SCH (20:44)
[2016-09-20] MEDS: OXYTOCIN 30 UNITS/LR 500 ML IV SCH ×6 (00:12→16:12)
[2016-09-20 03:45] VITALS: BP 100/62; PULSE 98; RESP 20
[2016-09-20] MEDS: DIPHENHYDRAMINE 50 MG INJ IV PRN (04:59)
[2016-09-20] MEDS: LACTATED RINGER'S 1,000 ML IV SCH ×3 (05:01→15:06)
[2016-09-20 08:00] VITALS: BP 114/63; PULSE 92; RESP 18
[2016-09-20 08:56] LABS: ADD SCAN DIFF NO
[2016-09-20] MEDS ORDERED: MULTIVIT/MIN/FOLATE/IRON/PREN TAB PO SCH ×3 (09:00)
[2016-09-20 09:02] LABS: BASOPHILS % 0.2 % (0.0-2.0); EOSINOPHILS # 0.1 10^3/ul (0.0-0.5); EOSINOPHILS % 0.6 % (0.0-7.0); HEMATOCRIT 23.8 % (37.0-47.0); HEMOGLOBIN 7.3 g/dl (12.0-16.0); LYMPHOCYTES # 1.4 10^3/ul (0.8-2.9); MEAN CORPUSCULAR HEMOGLOBIN 24.1 pg (29.0-33.0); MEAN CORPUSCULAR HGB CONC 30.7 g/dl (32.0-37.0); MEAN CORPUSCULAR VOLUME 78.5 fl (82.0-101.0); MEAN PLATELET VOLUME 12.1 fl (7.4-10.4); MONOCYTE # 0.8 10^3/ul (0.3-0.9); MONOCYTES % 6.1 % (0.0-11.0); NEUTROPHIL # 10.2 10^3/ul (1.6-7.5); NEUTROPHILS % 81.3 % (39.0-77.0); PLATELET COUNT 194 10^3/UL (140-415); RED BLOOD COUNT 3.03 10^6/ul (4.20-5.40); RED CELL DISTRIBUTION WIDTH 15.3 % (11.5-14.5); WHITE BLOOD COUNT 12.6 10^3/ul (4.8-10.8)
[2016-09-20] MEDS: SENNA/DOCUSATE NA (8.6MG/50MG) TAB PO SCH ×2 (09:24→22:12)
[2016-09-20] MEDS: MULTIVIT/MIN/FOLATE/IRON/PREN TAB PO SCH (09:24)
--- NOTE | 2016-09-20 10:02 | PN ---
Date/Time of Note Date/Time of Note DATE: 09/20/16 TIME: 10:01 OB Subjective Subjective Subjective Laboratory Tests Test 09/20/16 08:16 White Blood Count 12.610^3/ul Red Blood Count 3.0310^6/ul Hemoglobin 7.3g/dl Hematocrit 23.8% Mean Corpuscular Volume 78.5fl Mean Corpuscular Hemoglobin 24.1pg Mean Corpuscular Hemoglobin Concent 30.7g/dl Red Cell Distribution Width 15.3% Platelet Count 41217^3/UL Mean Platelet Volume 12.1fl Neutrophils % 81.3% Lymphocytes % 11.0% Monocytes % 6.1% Eosinophils % 0.6% Basophils % 0.2% Nucleated Red Blood Cells % 0.0/100WBC Neutrophils # 10.210^3/ul Lymphocytes # 1.410^3/ul Monocytes # 0.810^3/ul Eosinophils # 0.110^3/ul Basophils # 0.010^3/ul Nucleated Red Blood Cells # 0.010^3/ul Current Medications Medications (Trade) Dose Ordered Sig/Armin Route PRN Reason Start Time Stop Time Status Last Admin Dose Admin Lactated Ringer's 1,000 ml @ 125 mls/hr Q8H IV 09/19/16 07:06 09/20/16 05:01 Cefazolin Sodium/ Dextrose 50 ml @ 100 mls/hr ONCE IV 09/19/16 07:30 09/19/16 12:19 DC Oxytocin/Lactated Ringer's 500 ml @ 125 mls/hr ONCE IV 09/19/16 07:30 09/19/16 11:17 Oxytocin/Lactated Ringer's 500 ml @ 0 mls/hr ONCE PRN IV For Hemorrhage Management 09/19/16 07:30 09/19/16 12:19 DC Methylergonovine Maleate (Methergine) 0.2 mg ONCE PRN IM VAGINAL BLEEDING 09/19/16 07:30 Carboprost Tromethamine (Hemabate) 250 mcg ONCE PRN IM VAGINAL BLEEDING 09/19/16 07:30 Misoprostol (Cytotec) 1,000 mcg ONCE PRN VT VAGINAL BLEEDING 09/19/16 07:30 Citric Acid/ Sodium Citrate (Bicitra) 30 ml pre-procedure ONCE PO 09/19/16 07:30 09/19/16 07:31 DC Famotidine (Pepcid Iv) 20 mg pre-procedure ONCE IV 09/19/16 07:30 09/19/16 07:31 DC 09/19/16 07:40 Morphine Sulfate (Duramorph) 10 mg STK-MED ONCE .ROUTE 09/19/16 07:31 09/19/16 07:32 DC Fentanyl (Sublimaze) 100 mcg STK-MED ONCE .ROUTE 09/19/16 07:31 09/19/16 07:32 DC Citric Acid/ Sodium Citrate (Bicitra) 15 ml STK-MED ONCE .ROUTE 09/19/16 07:37 09/19/16 07:38 DC Citric Acid/ Sodium Citrate (Bicitra) 15 ml ONCE ONCE PO 09/19/16 08:00 09/19/16 08:07 DC 09/19/16 07:52 Citric Acid/ Sodium Citrate (Bicitra) 15 ml ONCE ONCE PO 09/19/16 08:00 09/19/16 08:07 DC 09/19/16 07:52 Ondansetron HCl (Zofran Inj) 4 mg STK-MED ONCE .ROUTE 09/19/16 08:54 09/19/16 08:55 DC Phenylephrine HCl (Johnathan-Synephrine Inj Syg) 500 mcg STK-MED ONCE .ROUTE 09/19/16 09:14 09/19/16 09:15 DC Hydromorphone HCl (Dilaudid (Rec)) 0.4 mg PACU ORDER PRN IV PAIN 09/19/16 09:30 09/19/16 14:00 DC Ketorolac Tromethamine (Toradol) 30 mg PACU ORDER PRN IV PAIN 09/19/16 09:30 09/19/16 14:00 DC 09/19/16 11:16 Ondansetron HCl (Zofran Inj) 4 mg PACU ORDER PRN IV NAUSEA AND/OR VOMITING 09/19/16 09:30 09/19/16 14:00 DC Prochlorperazine (Compazine Inj) 5 mg PACU ORDER PRN IV NAUSEA AND/OR VOMITING 09/19/16 09:30 09/19/16 14:00 DC Diphenhydramine HCl (Benadryl) 25 mg PACU ORDER PRN IV PRURITUS 09/19/16 09:30 09/19/16 14:00 DC Naloxone HCl (Narcan) 0.1 mg Q2M PRN IV FOR RESP RATE 8 OR LESS 09/19/16 09:30 09/20/16 09:03 DC Ketorolac Tromethamine (Toradol) 30 mg Q6H PRN IV PAIN 09/19/16 09:30 09/20/16 09:03 DC Hydromorphone HCl (Dilaudid) 0.2 mg Q3H PRN IV PAIN LEVEL 1-5 09/19/16 09:30 09/20/16 09:03 DC Hydromorphone HCl (Dilaudid) 0.4 mg Q3H PRN IV PAIN LEVEL 6-10 09/19/16 09:30 09/20/16 09:03 DC Diphenhydramine HCl (Benadryl) 25 mg Q6H PRN IV ITCHING 09/19/16 09:30 09/20/16 09:03 DC 09/20/16 04:59 Ondansetron HCl (Zofran Inj) 4 mg Q6H PRN IV NAUSEA AND/OR VOMITING 09/19/16 09:30 09/20/16 09:03 DC 09/19/16 15:14 Prochlorperazine (Compazine Inj) 10 mg ONCE PRN IV NAUSEA AND/OR VOMITING 09/19/16 09:30 09/20/16 09:03 DC Zolpidem Tartrate (Ambien) 5 mg HS MAY REPEAT X 1 PRN PO INSOMNIA 09/19/16 09:30 09/20/16 09:03 DC Miscellaneous Information Duramorph: 0.2 mg Spi... GIVEN XX 09/19/16 09:30 09/19/16 12:18 DC Oxytocin/Lactated Ringer's 500 ml @ ud STK-MED ONCE IV 09/19/16 09:36 09/19/16 09:37 DC Acetaminophen/ Codeine Phosphate (Tylenol No.3) 1 tab Q4H PRN PO PAIN LEVEL 4-6 09/19/16 12:30 Acetaminophen/ Codeine Phosphate (Tylenol No.3) 2 tab Q4H PRN PO PAIN LEVEL 7-10 09/19/16 12:30 Oxycodone/ Acetaminophen (Percocet (5/ 325)) 1 tab Q4H PRN PO PAIN LEVEL 4-6 09/19/16 12:30 Oxycodone/ Acetaminophen (Percocet (5/ 325)) 2 tab Q4H PRN PO PAIN LEVEL 7-10 09/19/16 12:30 Ibuprofen (Motrin) 600 mg Q6 PO 09/20/16 18:00 Simethicone (Mylicon) 160 mg Q8H PRN PO DISTENSION/GAS/BLOATING 09/19/16 12:30 Senna/Docusate Sodium (Senokot-S) 1 tab BID PO 09/19/16 21:00 09/20/16 09:24 Lanolin (Hro-S-Uwxvzw) 1 applic BEDSIDE MEDICATION PRN TOP BEDSIDE FOR THANH TO NIPPLES 09/19/16 12:30 09/19/16 15:14 Diphtheria/ Tetanus/Acell Pertussis 0.5 ml 0.5 ml ONCE ONCE IM* 09/22/16 09:00 09/22/16 09:01 Oxytocin/Lactated Ringer's 500 ml @ 0 mls/hr ONCE PRN IV For Hemorrhage Management 09/19/16 12:30 Methylergonovine Maleate (Methergine) 0.2 mg ONCE PRN IM VAGINAL BLEEDING 09/19/16 12:30 Carboprost Tromethamine (Hemabate) 250 mcg ONCE PRN IM VAGINAL BLEEDING 09/19/16 12:30 Misoprostol 1000 mcg 1,000 mcg ONCE PRN VT VAGINAL BLEEDING 09/19/16 12:30 Cefazolin Sodium 50 ml @ 100 mls/hr ONCE IVPB 09/19/16 12:30 09/19/16 12:59 DC 09/19/16 16:00 Oxytocin/Lactated Ringer's 500 ml @ 125 mls/hr Q4H IV 09/19/16 12:12 09/20/16 01:11 Prenat Multivit/ Bargeman/Iron/Folic Ac ( S) 1 tab DAILY PO 09/20/16 09:00 09/20/16 09:00 DC Prenat Multivit/ Kula/Iron/Folic Ac ( S) 1 tab DAILY PO 09/20/16 09:00 09/20/16 09:00 DC Prenat Multivit/ Kula/Iron/Folic Ac ( S) 1 tab DAILY PO 09/20/16 09:00 09/20/16 09:00 DC Prenat Multivit/ Bargeman/Iron/Folic Ac ( S) 1 tab DAILY PO 09/19/16 12:30 09/20/16 09:24 Post repeat day 1 Afebrile VS stable abdomen soft bowel sounds per incision intact lochia moderate extremity normal ambulation encouraged SATURNINO JACINTO MD September 20, 2016 10:02
[2016-09-20 12:00] VITALS: BP 98/58; PULSE 84; RESP 20
[2016-09-20 16:00] VITALS: BP 107/62; PULSE 18; RESP 18
[2016-09-20] MEDS: ACETAMINOPHEN 500 MG TAB PO PRN (16:01)
[2016-09-20] MEDS: IBUPROFEN 600 MG TAB PO SCH (17:55)
[2016-09-20 20:00] VITALS: BP 109/61; PULSE 18; RESP 18
[2016-09-21] MEDS: IBUPROFEN 600 MG TAB PO SCH ×5 (00:27→23:47)
[2016-09-21 04:00] VITALS: BP 106/57; PULSE 18; RESP 18
[2016-09-21 08:30] VITALS: BP 109/61; PULSE 91; RESP 17
[2016-09-21] MEDS: ACETAMINOPHEN 500 MG TAB PO PRN (09:01)
[2016-09-21] MEDS: MULTIVIT/MIN/FOLATE/IRON/PREN TAB PO SCH (09:01)
[2016-09-21] MEDS: SENNA/DOCUSATE NA (8.6MG/50MG) TAB PO SCH ×2 (09:01→21:14)
--- NOTE | 2016-09-21 10:29 | PN ---
Date/Time of Note Date/Time of Note DATE: 09/21/16 TIME: 10:28 OB Subjective Subjective Subjective Post day 2 Afebrile vital signs stable abdomen soft bowel sounds extremities normal able to pass flatus no bowel movement enema recommended ambulation encouraged SATURNINO JACINTO MD September 21, 2016 10:29
[2016-09-21] MEDS ORDERED: traMADol 50 MG TAB PO PRN (10:30)
[2016-09-21 16:10] VITALS: BP 103/59; PULSE 93; RESP 16
[2016-09-21 19:30] VITALS: BP 121/59; PULSE 97; RESP 18
[2016-09-22 03:45] VITALS: BP 109/63; PULSE 94; RESP 18
[2016-09-22] MEDS: IBUPROFEN 600 MG TAB PO SCH (05:30)
[2016-09-22 08:00] VITALS: BP 102/59; PULSE 83; RESP 20
[2016-09-22] MEDS: SENNA/DOCUSATE NA (8.6MG/50MG) TAB PO SCH (09:00)
[2016-09-22] MEDS ORDERED: DIPHTH/TET/ACEL PERTUSS (ADULT) 0.5 ML VIAL IM* ONE (09:00)
[2016-09-22] MEDS: ACETAMINOPHEN 500 MG TAB PO PRN (10:06)
[2016-09-22] MEDS: MULTIVIT/MIN/FOLATE/IRON/PREN TAB PO SCH (10:06)
--- NOTE | 2016-09-22 12:23 | PD.PPDC ---
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
--- NOTE | 2016-09-22 12:26 | DS ---
Date/Time of Note Date/Time of Note DATE: 09/22/16 TIME: 12:24 Discharge Summary Admission/Discharge Info Admit Date/Time September 19, 2016 at 06:44 Discharge Date/Time Sep 22 2016 at 1220 Final Diagnosis Post repeat day 3 Patient Condition: Good Procedures Repeat Hx of Present Illness with history of previous section Hospital Course Satisfactory uneventful Home Meds Reported Medications Multivit/Min/Fol Ac/Iron/Pren* ( S*) 1 Tab Tab, 1 TAB PO DAILY, TAB 08/23/16 Multivit/Min/Fol Ac/Iron/Pren* ( S*) 1 Tab Tab, 1 TAB PO DAILY, TAB 08/23/16 Multivit/Min/Fol Ac/Iron/Pren* ( S*) 1 Tab Tab, 1 TAB PO DAILY, TAB 08/23/16 Ferrous Sulfate (Iron) 325 Mg Capsule.er, 325 MG PO, CAP 07/29/16 Multivit/Min/Fol Ac/Iron/Pren* ( S*) 1 Tab Tab, 1 TAB PO DAILY, TAB 07/29/16 Primary Care Provider [facility] SATURNINO JACINTO MD September 22, 2016 12:26
== END 2016-09-22 18:46 | disposition home or self-care (01) | DRG 766 ==
LOC: L-D 06:44 → PP1 12:10
PROVIDERS: ADMIT Obstetrics & Gynecology; ATTEND Obstetrics & Gynecology
PROC: 10D00Z1 Extraction of Products of Conception, Low, Open Approach (ICD-10-PCS; principal; 2016-09-19 07:30)
DX: O34.211 Maternal care for low transverse scar from previous cesarean delivery (principal); Z37.0 Single live birth; Z3A.39 39 weeks gestation of pregnancy
CPT/HCPCS: 85025; 85610; 85730; 86592; 86850; 86900; 86901; 87340; 90715; 94760; 99464; J0690; J1200; J1885; J2274; J2370; J2405; J2590; J3010; J7120

== ENCOUNTER 2019-02-17 21:13 | Inpatient (IN) | payer OTHER ==
[~2019-02-17] VITALS: Ht 152.4 cm; Wt 95.8 kg
[~2019-02-17 21:13] MED LIST changes: +ASPI-817 PO; -FERR325C PO
[2019-02-17 21:30] VITALS: Ht 152.4 cm; Wt 95.8 kg
[2019-02-17 21:31] VITALS: BP 130/67; PULSE 108; RESP 20
[2019-02-17] MEDS ORDERED: ACETAMINOPHEN 500 MG TAB PO STA (21:44)
[2019-02-18] MEDS ORDERED: ACETAMINOPHEN 325 MG TAB PO PRN (01:00)
[2019-02-18] MEDS: FERROUS SULFATE (EC) 325 MG TAB PO SCH (09:15)
[2019-02-18] MEDS: PRENATAL VITAMIN PO SCH (09:15)
[2019-02-18] MEDS ORDERED: ACET/BUTAL/CAFF TAB PO ONE (12:00)
[2019-02-18] MEDS ORDERED: DOCUSATE SODIUM 100 MG CAP PO PRN (12:00)
[2019-02-18] MEDS: MAGNESIUM OXIDE 400 MG TAB PO SCH (13:24)
[2019-02-18] MEDS: DOCUSATE SODIUM 100 MG CAP PO SCH (15:50)
[2019-02-18] MEDS: ACET/BUTAL/CAFF TAB PO PRN (19:25)
[2019-02-19] MEDS: ACET/BUTAL/CAFF TAB PO PRN ×2 (01:26→07:37)
[2019-02-19] MEDS: DOCUSATE SODIUM 100 MG CAP PO SCH (09:10)
[2019-02-19] MEDS: FERROUS SULFATE (EC) 325 MG TAB PO SCH (09:10)
[2019-02-19] MEDS: MAGNESIUM OXIDE 400 MG TAB PO SCH (09:10)
[2019-02-19] MEDS: PRENATAL VITAMIN PO SCH (09:10)
[2019-02-20] MEDS: ACET/BUTAL/CAFF TAB PO PRN ×2 (06:27→19:44)
[2019-02-20] MEDS: FERROUS SULFATE (EC) 325 MG TAB PO SCH (08:58)
[2019-02-20] MEDS: MAGNESIUM OXIDE 400 MG TAB PO SCH (08:58)
[2019-02-20] MEDS: DOCUSATE SODIUM 100 MG CAP PO SCH (08:58)
[2019-02-20] MEDS: PRENATAL VITAMIN PO SCH (08:58)
[2019-02-21] MEDS: ACET/BUTAL/CAFF TAB PO PRN ×3 (06:19→20:51)
[2019-02-21] MEDS: PRENATAL VITAMIN PO SCH (09:21)
[2019-02-21] MEDS: DOCUSATE SODIUM 100 MG CAP PO SCH (09:21)
[2019-02-21] MEDS: FERROUS SULFATE (EC) 325 MG TAB PO SCH (09:21)
[2019-02-22] MEDS: DOCUSATE SODIUM 100 MG CAP PO SCH (08:48)
[2019-02-22] MEDS: FERROUS SULFATE (EC) 325 MG TAB PO SCH (08:48)
[2019-02-22] MEDS: PRENATAL VITAMIN PO SCH (08:49)
[2019-02-22] MEDS: ACET/BUTAL/CAFF TAB PO PRN (09:44)
== END 2019-02-22 18:05 | disposition home or self-care (01) | DRG 832 ==
LOC: OBT 21:13 → L-D 21:15 → OBT 02-18 01:00 → PP1 02-18 01:00
PROVIDERS: ADMIT Obstetrics & Gynecology; ATTEND Specialist
DX: O26.893 Other specified pregnancy related conditions, third trimester (principal); O12.13 Gestational proteinuria, third trimester; O34.219 Maternal care for unspecified type scar from previous cesarean delivery; G43.909 Migraine, unspecified, not intractable, without status migrainosus; Z3A.32 32 weeks gestation of pregnancy
CPT/HCPCS: 70544; 70551; 76815; 76817; 76818; 80053; 81001; 82565; 82575; 84156; 84560; 85025; G0463